=== PATIENT | male | born 1990 | race African-American/Black ===

== ENCOUNTER 2016-10-28 08:25 | Emergency (ER) | payer OTHER ==
[~2016-10-28] VITALS: Ht 167.6 cm; Wt 81.6 kg
[2016-10-28 08:35] VITALS: TEMP 98.3
[2016-10-28 14:45] VITALS: BP 134/86
== END 2016-10-28 14:45 | disposition home or self-care (01) ==
LOC: ED 08:25
DX: K40.90 Unilateral inguinal hernia, without obstruction or gangrene, not specified as recurrent (principal)
CPT/HCPCS: 36415; 99283